=== PATIENT | female | born 1965 ===

== ENCOUNTER 2018-02-10 11:14 | Emergency (ER) | payer OTHER ==
[~2018-02-10] VITALS: Ht 152.4 cm; Wt 79.4 kg
[~2018-02-10 11:14] MED LIST: TENORMIN25 MG
[2018-02-10] MEDS ORDERED: FORTAMET1000 MG (12:11)
[2018-02-10] MEDS ORDERED: SYNTHROID88 MCG (12:12)
[2018-02-10] MEDS ORDERED: ATORVASTATIN CA10 MG (12:12)
== END 2018-02-10 16:20 | disposition home or self-care (01) ==
LOC: ER 11:14
DX: R42 Dizziness and giddiness (principal)